=== PATIENT | male | born 1955 | race Caucasian/White ===

== ENCOUNTER 2016-09-27 18:49 | Inpatient (IN) ==
--- NOTE | 2016-09-27 19:11 | Emergency Department Note ---
Addendum entered and electronically signed by Luis Espinoza DO 23:27: Addendum serves to expand upon previously documented physical exam. Cardiovascular: Bilateral posterior tibial pulses 2/4. Musculoskeletal: Lower extremity strength 5/5 equal bilaterally. Skin: Left lower extremity exhibits blanchable erythema from the mid tibia to the middle foot, tender to palpation; development representative of cellulitis. Original Note: Disposition Clinical Impression: Congestive heart failure Qualifiers: Congestive heart failure type: unspecified congestive heart failure type Congestive heart failure chronicity: acute Qualified Code(s): I50.9 - Heart failure, unspecified Cellulitis Qualifiers: Site of cellulitis: extremity Site of cellulitis of extremity: lower extremity Laterality: left Qualified Code(s): L03.116 - Cellulitis of left lower limb Disposition: Admitted As Inpatient Condition: Fair [facility]Primary Care Provider[facility] - Forms: ED Satisfaction Letter Time of Disposition: 22:17 SOB HPI - General Chief Complaint: ED Shortness of Breath/Dyspnea Stated Complaint: SOB Time Seen by Provider: 09/27/16 19:02 Source: patient Mode of arrival: ambulatory Limitations: no limitations Nursing Notes Reviewed: Yes Vital Signs Reviewed: Yes - History of Present Illness Mr. Barnes, 7-year-old male, presents via EMS from the [place] with chief complaint of dyspnea. Onset yesterday morning and consistent. Described as dyspnea at rest, worsened with light exertion. Associate with increased bilateral lower extremity swelling PMH: A. fib rate limited on Cardizem; patient refuses anticoagulation. Hypertension managed with metoprolol. Patient has no history of CHF, COPD, ACS. He uses no oxygen at home. Habits: No smoke, EtOH, or illicit. ROS: Positive: Dyspnea at rest, increase like swelling Negative: Fever, chills, nausea, vomiting, chest pains, palpitations, cough, dizziness, confusion - Related Data Home Medications Medication Instructions Recorded Confirmed Aspirin 650 mg PO DAILY 09/27/16 09/27/16 Bisacodyl [Dulcolax] 5 mg PO HS 09/27/16 09/27/16 Colchicine [Colcrys] 0.6 mg PO DAILY 09/27/16 09/27/16 Diltiazem HCl [Diltiazem 24Hr Cd] 180 mg PO BID 09/27/16 09/27/16 Furosemide [Lasix] 40 mg PO DAILY 09/27/16 09/27/16 Hydrocortisone/Pramoxine 10 gm RC TID 09/27/16 09/27/16 [Proctofoam-Hc 1%-1% Foam] Levothyroxine [Synthroid] 50 mcg PO 0609/27/16 09/27/16 Metoprolol Succinate 100 mg PO BID 09/27/16 09/27/16 OxyCODONE Immed Rel [Roxicodone 15 15 mg PO Q4H PRN 09/27/16 09/27/16 MG] Psyllium Husk (with Sugar) [Konsyl 3.4 gm PO BID 09/27/16 09/27/16 Psyllium Fiber Packet] Allergies Allergy/AdvReac Type Severity Reaction Status Date / Time vancomycin Allergy See Verified 09/27/16 19:41 Comments All systems ED: reviewed and negative except as stated. Past Medical History - Past Medical History Medical history: Reports: atrial fibrillation, diabetes, hypertension Psychiatric history: Reports: no psych history - Social History Smoking Status: Never smoker Smokeless Tobacco Status: No Alcohol use: Reports: occasionally Drug use: Reports: none Physical Exam Vital Signs Reviewed General: Patient is alert, oriented, and in no acute respiratory distress. HEENT: No facial asymmetry. Head is normocephalic and atraumatic. PERRLA. Trachea midline. Cardiovascular: Heart regular rate and rhythm without clicks, rubs, gallops, or murmurs. No JVD. PMI nondisplaced. Bilateral lower extremity 3+ pitting edema with weeping on left leg. Respiratory: Symmetric chest rise with poor respiratory effort. Bilateral breath sounds are clear without wheezing, crackles, or rhonchi. Abdomen: Morbidly obese. Bowel sounds present normoactive x-4 quadrants. Abdomen is soft, nondistended, and nontender. Psych: Patient's affect is appropriate for situation. - General General appearance: alert Course Course Narrative: [facility] showed: white blood cell 3.7 Hemoglobin 11.2 Hematocrit 36.1 Troponin less than 0.015 BNP 3587 Patient's exam is clinically concerning for acute exacerbation of congestive heart failure. Initially, he has what appears to be left lower extremity cellulitis which patient notes his worsening within the nursing department. Will culture blood and provide empiric antibiotics. Patient left lower extremity also clinically concerning for DVT; will ultrasound. Anticipate admission to the hospital for continued IV antibiotics as well as acute exacerbation of congestive heart failure. Chest x-ray concerning for pulmonary effusion. Labwork concerning for elevated BNP, hyperthyroidism, anemia. No previous lab work. DVT study negative. Spoke with the admitting hospitalist, Dr. Bhatia, who agrees to accept the patient. He has no questions at this time. Vital Signs Temperature 97.7 F 09/27/16 18:51 Pulse Rate 95 09/27/16 18:51 Respiratory Rate 18 09/27/16 18:51 Blood Pressure 146/94 09/27/16 18:51 O2 Sat by Pulse Oximetry 99 09/27/16 18:51 Temperature 97.7 F 09/27/16 18:51 Pulse Rate 88 09/27/16 21:29 Respiratory Rate 16 09/27/16 21:29 Blood Pressure 125/82 09/27/16 21:29 O2 Sat by Pulse Oximetry 98 09/27/16 21:29 Oxygen Delivery Oxygen Delivery Nasal Cannula Shortness of Breath/Dyspnea - Differential Diagnosis Likely: congestive heart failure, pulmonary embolism, arrhythmia - Medical Records Medical records reviewed: Yes I reviewed the patient's medical records. - Lab Data Lab results reviewed: Yes I reviewed the patient's lab results. Result diagrams: 09/27/16 19:18 09/27/16 19:18 Lab Results 09/27/16 09/27/16 09/27/16 Range/Units 19:18 19:18 19:18 WBC 4.0 L (4.3-11.1) K/mcL RBC 4.15 L (4.19-5.50) M/mcL Hgb 11.3 L (12.9-16.9) g/dL Hct 35.2 L (37.5-50.1) % MCV 84.8 (83.0-100.0) fL MCH 27.2 L (28.0-33.3) pg MCHC 32.1 (31.6-35.5) g/dL RDW 17.6 H (11.5-14.5) % Plt Count 121 L (140-400) K/mcL MPV 9.8 (9.4-12.4) fL Immature Gran % 0.8 (0-4) % Seg Neutrophils % 55.5 % Lymphocytes % 30.6 % Monocytes % 8.8 % Eosinophils % 3.8 % Basophils % 0.5 % Neutrophils # 2.2 (1.6-8.9) K/mcL Lymphocytes # 1.2 (0.6-4.6) K/mcL Monocytes # 0.4 (0.0-1.3) K/mcL Eosinophils # 0.2 (0.0-0.6) K/mcL Basophils # 0.0 (0.0-0.2) K/mcL PT 14.2 H (9.4-12.1) Seconds INR 1.3 APTT 30.8 (26.0-36.0) Seconds Sodium 141 (136-145) mEq/L Potassium 3.6 (3.5-4.5) mEq/L Chloride 105 (98-109) mEq/L Carbon Dioxide 27 (19-29) mEq/L BUN 16 (8-26) mg/dL Creatinine 1.20 (0.72-1.25) mg/dL Est GFR ( Amer) > 60 (> 60) Est GFR (Non-Af Amer) > 60 (> 60) BUN/Creatinine Ratio 13 (6-26) Glucose 129 H (70-99) mg/dL Calculated Osmolality 295 (280-300) Calcium 8.8 (8.6-10.8) mg/dL Troponin I (0-0.03) ng/mL B-Natriuretic Peptide (0-100) pg/mL TSH 6.168 H (0.350-4.840) mcIU/mL 09/27/16 09/27/16 Range/Units 19:18 19:18 WBC (4.3-11.1) K/mcL RBC (4.19-5.50) M/mcL Hgb (12.9-16.9) g/dL Hct (37.5-50.1) % MCV (83.0-100.0) fL MCH (28.0-33.3) pg MCHC (31.6-35.5) g/dL RDW (11.5-14.5) % Plt Count (140-400) K/mcL MPV (9.4-12.4) fL Immature Gran % (0-4) % Seg Neutrophils % % Lymphocytes % % Monocytes % % Eosinophils % % Basophils % % Neutrophils # (1.6-8.9) K/mcL Lymphocytes # (0.6-4.6) K/mcL Monocytes # (0.0-1.3) K/mcL Eosinophils # (0.0-0.6) K/mcL Basophils # (0.0-0.2) K/mcL PT (9.4-12.1) Seconds INR APTT (26.0-36.0) Seconds Sodium (136-145) mEq/L Potassium (3.5-4.5) mEq/L Chloride (98-109) mEq/L Carbon Dioxide (19-29) mEq/L BUN (8-26) mg/dL Creatinine (0.72-1.25) mg/dL Est GFR ( Amer) (> 60) Est GFR (Non-Af Amer) (> 60) BUN/Creatinine Ratio (6-26) Glucose (70-99) mg/dL Calculated Osmolality (280-300) Calcium (8.6-10.8) mg/dL Troponin I 0.00 (0-0.03) ng/mL B-Natriuretic Peptide 562 H (0-100) pg/mL TSH (0.350-4.840) mcIU/mL - Radiology Data Radiology results reviewed: Yes I reviewed the patient's radiology results. Chest X-Ray 09/27/16 19:02 IMPRESSION: Enlarged cardiac silhouette and pulmonary vascular congestion. D/ / Stevie Paula MD / Stevie Paula MD Interpreting Provider: Stevie Paula MD - EKG Data EKG attestation: Yes I reviewed and interpreted this EKG. EKG results narrative: 2. Patient's EKG which shows atrial fibrillation rate controlled, at a rate of 89 bpm with poor R-wave progression across the anterior leads and evidence of lateral T-wave inversion in V4 V5 and V6 1 and aVL, this is compared to an old EKG and these findings are not new this was compared to 02/26/2015. Attestation Statement - Attestation Attestation: I personally interviewed and examined this patient and my medical decision- making was reviewed with the ED Resident Physician, Dr. Espinoza. I agree with the documented findings, disposition and treatment plan as described except to the extent set forth below. Patient is a pleasant 61-year-old white male who was sent here from the [facility] for evaluation of shortness of breath, with increased lower extremity edema. Patient has a history of chronic A. fib and is on Cardizem at home, states he refuses to take anticoagulants that he is on no blood thinners at this time. Patient tells me that he was told by his doctors at the [place] that if he ever develops shortness of breath or swelling in his legs that he should return to the emergency department as he does have a history of congestive heart failure. Patient was feeling a little short of breath noticed edema and so he went in for evaluation and then was sent to us for further evaluation. Patient also has what looks like a superficial abrasion noted to the left lower medial leg with surrounding erythema increased warmth to touch and soft tissue swelling. In the last 24 hours this has progressed to encompass his entire foot and ankle and lower leg. He has no proximal streaking from the area, denies any fevers or chills, no nausea vomiting. Patient had no prior episodes or problems with cellulitis or hospitalizations as a result of cellulitis. Patient is diabetic, type II and states his sugars have been well-controlled at home. I agree with patient's physical exam is documented. On evaluation here patient is in his chronic A. fib rhythm but rate controlled at this time on his medications. I do not feel that this is causing him to be short of breath. Patient had no infectious like symptoms no fevers or chills no production of cough no sore throat. Patient's lungs are clear on auscultation. Patient's chest x-ray does show some mild congestion, mild CHF, so patient was given aspirin nitroglycerin and a dose of Lasix here in the ED. I am also worried about the patient's left lower leg and we are obtaining blood cultures, starting him on antibiotics for the cellulitis and obtaining a DVT study of the left lower extremity to rule out a blood clot. Patient has no prior history of blood clots. Patient is hemodynamically stable at this time resting comfortably in no distress and we are awaiting ultrasound for final disposition. My plan is to admit the patient to the hospital for treatment of his CHF as well as his left lower extremity cellulitis.
[2016-09-27 19:25] LABS: Basophils % 0.5 %; Eosinophils # 0.2 K/mcL (0.0-0.6); Eosinophils % 3.8 %; Hematocrit 35.2 % (37.5-50.1); Hemoglobin 11.3 g/dL (12.9-16.9); Immature Granulocytes % 0.8 % (0-4); Lymphocytes # 1.2 K/mcL (0.6-4.6); Lymphocytes % 30.6 %; Mean Corpuscular HGB Conc 32.1 g/dL (31.6-35.5); Mean Corpuscular Hemoglobin 27.2 pg (28.0-33.3); Mean Corpuscular Volume 84.8 fL (83.0-100.0); Mean Platelet Volume 9.8 fL (9.4-12.4); Monocytes # 0.4 K/mcL (0.0-1.3); Monocytes % 8.8 %; Neutrophils # 2.2 K/mcL (1.6-8.9); Platelet Count 121 K/mcL (140-400); Red Blood Count 4.15 M/mcL (4.19-5.50); Red Cell Distribution Width 17.6 % (11.5-14.5); Segmented Neutrophils % 55.5 %
[2016-09-27] MEDS ORDERED: Aspirin 81 MG TAB.CHEW PO ONE (19:25)
[2016-09-27 19:32] LABS: INR 1.3; Prothrombin Time 14.2 Seconds (9.4-12.1)
[2016-09-27 19:34] LABS: Activated Partial Thrombo Time 30.8 Seconds (26.0-36.0)
[2016-09-27 19:39] LABS: BUN/Creatinine Ratio 13 (6-26); Blood Urea Nitrogen 16 mg/dL (8-26); Calcium 8.8 mg/dL (8.6-10.8); Carbon Dioxide 27 mEq/L (19-29); Chloride 105 mEq/L (98-109); Glucose 129 mg/dL (70-99); Osmolality,Calculated 295 (280-300); Potassium 3.6 mEq/L (3.5-4.5); Sodium 141 mEq/L (136-145); eGFR For African Americans > 60 (> 60); eGFR For Non-African Americans > 60 (> 60)
[2016-09-27 20:12] LABS: Thyroid Stimulating Hormone 6.168 mcIU/mL (0.350-4.840)
[2016-09-27] MEDS ORDERED: Nitroglycerin 1 INCH/GM PACKET TP ONE (20:42)
[2016-09-27] MEDS ORDERED: Furosemide 40 MG/4 ML VIAL IVP ONE (20:42)
[2016-09-27] MEDS ORDERED: Clindamycin 600 MG/50 ML 600 MG/50 ML IV.SOLN IVPB STA (20:45)
[2016-09-28] MEDS ORDERED: Naloxone 0.4 MG/ML INJ IVP PRN ×2 (00:55→00:57)
[2016-09-28] MEDS ORDERED: Acetaminophen 325 MG TABLET PO PRN (00:57)
[2016-09-28] MEDS ORDERED: Vancomycin 2,000 MG in D5% in Water 250 ML IVPB SCH (01:00)
[2016-09-28] MEDS: *HR* OxyCODONE Immed Rel 15 MG TABLET PO PRN ×5 (01:49→20:37)
[2016-09-28] MEDS ORDERED: Diltiazem CD (24hr) 180 MG CAPSULE PO SCH ×3 (02:30→09:00)
[2016-09-28] MEDS ORDERED: Metoprolol XL (24 HR) Succ 50 MG TAB.ER.24H PO SCH ×2 (02:30→09:00)
[2016-09-28 03:22] LABS: Basophils % 0.7 %; Eosinophils # 0.2 K/mcL (0.0-0.6); Eosinophils % 3.7 %; Hematocrit 34.8 % (37.5-50.1); Hemoglobin 11.3 g/dL (12.9-16.9); Immature Granulocytes % 0.5 % (0-4); Lymphocytes # 1.1 K/mcL (0.6-4.6); Mean Corpuscular HGB Conc 32.5 g/dL (31.6-35.5); Mean Corpuscular Hemoglobin 27.7 pg (28.0-33.3); Mean Corpuscular Volume 85.3 fL (83.0-100.0); Mean Platelet Volume 10.6 fL (9.4-12.4); Monocytes # 0.4 K/mcL (0.0-1.3); Monocytes % 10.4 %; Neutrophils # 2.3 K/mcL (1.6-8.9); Platelet Count 134 K/mcL (140-400); Red Blood Count 4.08 M/mcL (4.19-5.50); Red Cell Distribution Width 17.7 % (11.5-14.5); Segmented Neutrophils % 57.7 %
[2016-09-28 03:23] LABS: BUN/Creatinine Ratio 12 (6-26); Blood Urea Nitrogen 15 mg/dL (8-26); Calcium 8.7 mg/dL (8.6-10.8); Carbon Dioxide 27 mEq/L (19-29); Chloride 103 mEq/L (98-109); Glucose 169 mg/dL (70-99); Magnesium 1.7 mg/dL (1.6-2.6); Osmolality,Calculated 293 (280-300); Potassium 3.4 mEq/L (3.5-4.5); Sodium 139 mEq/L (136-145); eGFR For African Americans > 60 (> 60); eGFR For Non-African Americans 57 (> 60)
--- NOTE | 2016-09-28 05:38 | Internal Med History&Physical ---
Date of Encounter: 09/28/16 Time of Encounter: 02:00 Assessment and Plan (1) CHF exacerbation Current visit: Yes Status: Acute patient has increased shortness of breath and leg swelling. Elevated BNP and pulmonary vascular congestion on x-ray. - Consider CHF exacerbation. - Patient has no echo result in our system. We will order echocardiogram. - Continue Lasix IV. Strict in and out. Qualifiers: Congestive heart failure type: unspecified congestive heart failure type Qualified Code(s): I50.9 - Heart failure, unspecified (2) A-fib Current visit: Yes Status: Acute Heart rate is well controlled. 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 patient had history of ablation procedure. Qualifiers: Atrial fibrillation type: chronic Qualified Code(s): I48.2 - Chronic atrial fibrillation (3) Sleep apnea Current visit: Yes Status: Acute Patient uses CPAP at home. We will continue CPAP. Qualifiers: Sleep apnea type: obstructive Qualified Code(s): G47.33 - Obstructive sleep apnea (adult) (pediatric) (4) Hypothyroidism Current visit: Yes Status: Acute Continue home medication Qualifiers: Hypothyroidism type: unspecified Qualified Code(s): E03.9 - Hypothyroidism , unspecified (5) Chronic hip pain Current visit: Yes Status: Acute CHRONIC. On pain medication. Qualifiers: Laterality: right Qualified Code(s): M25.551 - Pain in right hip; G89.29 - Other chronic pain (6) Cellulitis Current visit: Yes Status: Acute Cellulitis. Patient is allergic to vancomycin. Place the patient on doxycycline IV. Blood cultures sent. Qualifiers: Site of cellulitis: extremity Site of cellulitis of extremity: lower extremity Laterality: left Qualified Code(s): L03.116 - Cellulitis of left lower limb Internal Medicine - H&P: HPI Chief complaint: Shortness of breath and leg swelling Admitted From: Home Plans for Post Hospital Care: Home History of present illness: Mr. Barnes is a 61 year old male transferred from [place] for increased shortness of breath and leg swelling. Patient said he had a similar problem 2 months ago. This time he had a swelling again and increase the shortness of breath for 2 days. He needed 5-6 pillows during sleep and sometimes waking up by shortness of breath during his sleep. In emergency room, chest x-ray shows pulmonary vascular congestion. BNP is elevated. Patient was admitted about CHF exacerbation. I discussed with patient the CODE STATUS. He does not want resuscitation but do accept intubation. Please CODE STATUS as DNR CCA. Past Med Surg Social Fam HX - Past Medical History Medical history: atrial fibrillation, diabetes, hypertension Psychiatric history: no psych history - Social History Smoking Status: Never smoker Smokeless Tobacco Status: No Alcohol use: occasionally Drug use: none - Family History Father Living Status: Hx Family Cancer: Yes (lung) Mother Living Status: Internal Medicine - H&P: Meds Aspirin 650 mg PO DAILY 09/27/16 [History] Bisacodyl [Dulcolax] 5 mg PO HS 09/27/16 [History] Colchicine [Colcrys] 0.6 mg PO DAILY 09/27/16 [History] Diltiazem HCl [Diltiazem 24Hr Cd] 180 mg PO BID 09/27/16 [History] Furosemide [Lasix] 40 mg PO DAILY 09/27/16 [History] Hydrocortisone/Pramoxine [Proctofoam-Hc 1%-1% Foam] 10 gm RC TID 09/27/16 [ History] Levothyroxine [Synthroid] 50 mcg PO 0630 09/27/16 [History] Metoprolol Succinate 100 mg PO BID 09/27/16 [History] OxyCODONE Immed Rel [Roxicodone 15 MG] 15 mg PO Q4H PRN 09/27/16 [History] Psyllium Husk (with Sugar) [Konsyl Psyllium Fiber Packet] 3.4 gm PO BID [History] Allergies vancomycin Allergy (Verified 09/27/16 19:41) See Comments pt states that when he takes vanc he passes out and has twitching movements All Systems PM: A 10-system review of systems was performed and is negative for pertinent findings except as documented above in the HPI. - Constitutional Vitals: Temp Pulse Resp BP Pulse Ox 97.9 F 81 16 146/93 97 09/28/16 00:20 09/28/16 00:20 09/28/16 00:20 09/28/16 00:20 09/28/16 00:20 General appearance: Present: A&O X 3, no acute distress, answers questions appropriately - Head Head exam: Present: atraumatic, normocephalic - Eye Eye exam: Present: PERRL, conjuntiva pink, sclera anicteric Pupils: Present: PERRL - Neck Neck exam general surgery: Present: supple, trachea midline. Absent: lymphadenopathy - Respiratory Respiratory exam: Present: CTAB. Absent: accessory muscle use, rales, rhonchi, wheezes - Cardiovascular Cardiovascular exam: Present: RRR, +S1, +S2. Absent: diastolic murmur, gallop, rubs, systolic murmur - GI/Abdominal GI/Abdominal exam: Present: normal bowel sounds, soft, no peritoneal signs. Absent: distended, tenderness - Extremities Exam Extremities exam: Present: pedal edema (Bilaterally up to knee), warm, radial pulses palpable and symetrical. Absent: calf tenderness, cyanotic Additional comments: Pt also has left lower leg skin redness and warmth, consistent with cellulitis. - Neurological Exam Neurological exam: Present: CN II-XII intact, oriented X3, no focal deficits. Absent: pronater drift, facial droop, speech deficit - Skin Skin exam: Present: dry, intact Internal Med - H&P Results - Labs CBC & Chem 7: 09/28/16 03:04 09/28/16 03:04 Labs: Short CBC 09/28/16 Range/Units 03:04 WBC 4.0 L (4.3-11.1) K/mcL Hgb 11.3 L (12.9-16.9) g/dL Hct 34.8 L (37.5-50.1) % Plt Count 134 L (140-400) K/mcL Neutrophils # 2.3 (1.6-8.9) K/mcL BMP 09/28/16 03:04 Sodium 139 Potassium 3.4 L Chloride 103 Carbon Dioxide 27 BUN 15 Creatinine 1.28 H Glucose 169 H Calcium 8.7
[2016-09-28] MEDS: *HR* Enoxaparin 40 MG/0.4 ML SYRINGE SQ SCH (05:42)
[2016-09-28] MEDS ORDERED: Doxycycline 100 MG in 0.9 % Sodium Chloride Mini Bag 100 ML IVPB SCH (06:00)
--- NOTE | 2016-09-28 07:24 | Venous Imaging Report ---
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 Normal contralateral common femoral vein. Recommendations: Test completed on 09/27/2016 at 10:09:00 pm. Critical findings reported to MARION Messina in person at 10:10:00 pm on 09/27/2016 by Frieda Larson. Findings Prior Study: No prior study available for comparison. Lower Extremity Venous Duplex Side Vein Compress Spontaneous Flow Augment Diameter (cm) Depth (cm) Left Distal Iliac Normal Yes Phasic Yes Left Common Femoral Normal Yes Phasic Yes Left Superficial Femoral Normal Yes Phasic Yes Left Popliteal Normal Yes Phasic Yes Left Posterior Tibial Normal Yes Phasic Yes Left Peroneal Normal Yes Phasic Yes Left Saphenofemoral [place] Normal Yes Phasic Yes Left Great Saphenous Normal Yes Phasic Yes Left Lesser Saphenous Normal Yes Phasic Yes Right Common Femoral Normal Yes Phasic Yes Updated by Toño Gorman MD on 09/28/2016 7:16:59 AM electronically signed on 09/28/2016 7:17:52 AM with status of Final
[2016-09-28] MEDS: Furosemide 40 MG/4 ML VIAL IVP SCH (08:55)
--- NOTE | 2016-09-28 10:28 | Event Note ---
<Eliud Wells G - Last Filed: 09/28/16 14:09> Date of Encounter: 09/28/16 Time of Encounter: 10:20 Patient seen and examined at bedside. Patient reports palpitations at this time. Denies chest pain/dyspnea. Patient was sitting up in bed and got out of bed to use the restroom while I was present, no distress noted. VS: HR 125, BP 140/100, SpO2 97% RA, T 98.2 Eye: swelling and erythema surrounding L eye. No visoin changes, EOMI without pain on EOM Heart: Irregularly Irregular. No m/r/g Lungs: Diminshed throughout. No rales/rhonchi/wheezes noted. Skin: Multiple healing excoriations diffusely spread throughout. No pustular drainage noted. Mild erythema to LLE. A/P: Acute on chronic diastolic heart failure: Possibly due to a fib with RVR. Echo shows normal EF with indeterminate diastolic function. Continue beta curtis, diuresis. A fib with RVR: Rate elevated at this time, likely due to patient not receiving medication in past 36 hours. Patient otherwise stable. Will restart home medications. Continue to monitor rate. Patient is not on AC per PCP, patient only takes ASA 650mg daily. Cellulitis of eye: Erythema and swelling around eye noted. No vision changes or pain with EOM. Will obtain stat CY of orbit to rule out orbital cellulitis. Start ancef and doxycycline Lower extremity erythema: Concern for cellutlitis given multiple areas od excoriation that could be an area of entry for infection. Start ancef and doxycycline as patient has stated allergy to vancomycin <Lucien Rodriguez - Last Filed: 09/28/16 18:57> Date of Encounter: 09/28/16 Pt admitted earlier today for acute exac CHF. Has a fib with RVR. PO meds given. Comfortable at this time. Has cellulitis around L eye (preseptal) Further plan as ordered.
[2016-09-28] MEDS: Diltiazem CD (24hr) 180 MG CAPSULE PO SCH ×2 (10:37→20:37)
[2016-09-28] MEDS: Metoprolol XL (24 HR) Succ 50 MG TAB.ER.24H PO SCH ×2 (10:37→20:37)
[2016-09-28] MEDS: Aspirin 325 MG TABLET PO SCH (11:36)
[2016-09-28] MEDS: Colchicine 0.6 MG TABLET PO SCH (11:37)
[2016-09-28] MEDS: Pramoxine 15 GM FOAM Package RC SCH ×3 (16:12→20:40)
[2016-09-28] MEDS: ceFAZolin 1,000 MG in D5% in Water (Mini-Bag+) 100 ML IVPB SCH (16:22)
[2016-09-28] MEDS: Doxycycline 100 MG in 0.9 % Sodium Chloride Mini Bag 100 ML IVPB SCH (17:46)
--- NOTE | 2016-09-28 23:56 | Electrocardiograph Report ---
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
[2016-09-29] MEDS: ceFAZolin 1,000 MG in D5% in Water (Mini-Bag+) 100 ML IVPB SCH ×4 (00:10→23:02)
[2016-09-29] MEDS: *HR* OxyCODONE Immed Rel 15 MG TABLET PO PRN ×6 (00:50→23:02)
[2016-09-29 04:34] LABS: Basophils % 0.7 %; Eosinophils # 0.2 K/mcL (0.0-0.6); Eosinophils % 3.9 %; Hematocrit 33.5 % (37.5-50.1); Hemoglobin 10.5 g/dL (12.9-16.9); Immature Granulocytes % 0.7 % (0-4); Lymphocytes # 1.3 K/mcL (0.6-4.6); Lymphocytes % 29.7 %; Mean Corpuscular HGB Conc 31.3 g/dL (31.6-35.5); Mean Corpuscular Hemoglobin 27.1 pg (28.0-33.3); Mean Corpuscular Volume 86.6 fL (83.0-100.0); Mean Platelet Volume 10.8 fL (9.4-12.4); Monocytes # 0.5 K/mcL (0.0-1.3); Monocytes % 11.1 %; Neutrophils # 2.3 K/mcL (1.6-8.9); Platelet Count 132 K/mcL (140-400); Red Blood Count 3.87 M/mcL (4.19-5.50); Red Cell Distribution Width 17.7 % (11.5-14.5); Segmented Neutrophils % 53.9 %
[2016-09-29 04:55] LABS: BUN/Creatinine Ratio 11 (6-26); Blood Urea Nitrogen 14 mg/dL (8-26); Calcium 8.8 mg/dL (8.6-10.8); Carbon Dioxide 30 mEq/L (19-29); Chloride 105 mEq/L (98-109); Glucose 119 mg/dL (70-99); Osmolality,Calculated 294 (280-300); Potassium 3.4 mEq/L (3.5-4.5); Sodium 141 mEq/L (136-145); eGFR For African Americans > 60 (> 60); eGFR For Non-African Americans > 60 (> 60)
[2016-09-29] MEDS: Doxycycline 100 MG in 0.9 % Sodium Chloride Mini Bag 100 ML IVPB SCH ×2 (05:47→17:36)
[2016-09-29] MEDS: *HR* Enoxaparin 40 MG/0.4 ML SYRINGE SQ SCH (05:47)
--- NOTE | 2016-09-29 09:19 | Internal Med Progress Note ---
<PriscillaEliud - Last Filed: 09/29/16 09:17> Date of Encounter: 09/29/16 Time of Encounter: 09:17 - Assessment and plan (1) Congestive heart failure Current Visit: Yes Status: Acute Assessment and plan: Echo yesterday revealed EF of 60-65% with indeterminant diastolic dysfunction. Clinically the patient presented with fluid overload and signs of acute exacerbation of chronic diastolic heart failure. Patient reports good diuresis although there is no urine output documented in system patient's lower extremity edema appears much improved. Continue with IV diuresis. Qualifiers: Congestive heart failure type: diastolic Congestive heart failure chronicity: acute on chronic Qualified Code(s): I50.33 - Acute on chronic diastolic (congestive) heart failure (2) Cellulitis Current Visit: Yes Status: Acute Assessment and plan: Patient has left lower extremity cellulitis in addition to a preseptal cellulitis around the left eye. CT scan of the orbit performed yesterday showed no evidence of orbital cellulitis. Appears improving. Continue with cefazolin and doxycycline IV as the patient is allergic to vancomycin. Qualifiers: Site of cellulitis: periorbital Laterality: left Qualified Code(s): L03.213 - Periorbital cellulitis (3) A-fib Current Visit: Yes Status: Acute Assessment and plan: Rate control at this time. Patient is only on aspirin 650 mg daily for anticoagulation per his primary care physician. Continue calcium channel curtis and beta curtis. Qualifiers: Atrial fibrillation type: chronic Qualified Code(s): I48.2 - Chronic atrial fibrillation (4) Hypothyroidism Current Visit: Yes Status: Acute Assessment and plan: Patient's TSH was elevated on presentation. Patient does take 50 g of Synthroid daily, will check full thyroid panel before adjusting thyroid medications. Asymptomatic at this time. Qualifiers: Hypothyroidism type: unspecified Qualified Code(s): E03.9 - Hypothyroidism , unspecified - Subjective Interval history: Patient seen and examined at bedside. Patient states that he feels much better today. He reports his lower extremity swelling and left lower extremity redness is improved, he states the swelling around his eye feels better. He denies fever, chills, shortness of breath, chest pain. - Constitutional Vitals: Temp Pulse Resp BP Pulse Ox 98.1 F 71 19 140/95 97 09/29/16 07:00 09/29/16 07:00 09/29/16 07:00 09/29/16 07:00 09/29/16 07:00 General appearance: Present: A&O X 3, no acute distress, answers questions appropriately - Eye Eye exam: Present: EOMI (No pain with extraocular movements), periorbital swelling (improved from yesterday) - Respiratory Respiratory exam: Present: CTAB. Absent: rales, rhonchi, wheezes - Cardiovascular Cardiovascular exam: Present: irregular rhythm. Absent: gallop, rubs, systolic murmur, tachycardia - GI/Abdominal GI/Abdominal exam: Present: normal bowel sounds, soft. Absent: distended, tenderness - Extremities Exam Extremities exam: Present: pedal edema (1+, improved from yesterday), warm. Absent: tenderness Additional comments: Erythema to left lower extremity is present but improved from yesterday. - Neurological Exam Neurological exam: Present: alert, CN II-XII intact, oriented X3, no focal deficits Internal Medicine: Result - Labs CBC & Chem 7: 09/29/16 03:58 09/29/16 03:58 Labs: Short CBC 09/29/16 Range/Units 03:58 WBC 4.3 (4.3-11.1) K/mcL Hgb 10.5 L (12.9-16.9) g/dL Hct 33.5 L (37.5-50.1) % Plt Count 132 L (140-400) K/mcL Neutrophils # 2.3 (1.6-8.9) K/mcL BMP 09/29/16 03:58 Sodium 141 Potassium 3.4 L Chloride 105 Carbon Dioxide 30 H BUN 14 Creatinine 1.22 Glucose 119 H Calcium 8.8 - ABG Interpretation ABG results: PT/INR, D-dimer PT 14.2 Seconds (9.4-12.1) H 09/27/16 19:18 - Impressions Impressions Orbit CT 09/28/16 14:02 IMPRESSION: Mild left periorbital soft tissue swelling and mild soft tissue swelling of the medial eyelid. Findings are consistent with left preseptal cellulitis. No evidence of orbital cellulitis. D/ / 09/28/2016 16:07:11 Ailyn Edward MD / earnold Interpreting Provider: Ailyn dEward MD Consult Discharge Plan - Plan [facility] Provider[facility] - <Lucien Rodriguez A - Last Filed: 09/29/16 17:31> Date of Encounter: 09/29/16 - Assessment and plan (1) Congestive heart failure Current Visit: Yes Status: Acute Qualifiers: Congestive heart failure type: diastolic Congestive heart failure chronicity: acute on chronic Qualified Code(s): I50.33 - Acute on chronic diastolic (congestive) heart failure (2) A-fib Current Visit: Yes Status: Acute Qualifiers: Atrial fibrillation type: chronic Qualified Code(s): I48.2 - Chronic atrial fibrillation (3) Cellulitis Current Visit: Yes Status: Acute Qualifiers: Site of cellulitis: periorbital Laterality: left Qualified Code(s): L03.213 - Periorbital cellulitis (4) Nodular rash Current Visit: Yes Status: Chronic Assessment and plan: Biopsy today (5) Hypothyroidism Current Visit: Yes Status: Acute Qualifiers: Hypothyroidism type: unspecified Qualified Code(s): E03.9 - Hypothyroidism , unspecified (6) Sleep apnea Current Visit: Yes Status: Acute Qualifiers: Sleep apnea type: obstructive Qualified Code(s): G47.33 - Obstructive sleep apnea (adult) (pediatric) (7) Morbid obesity with BMI of 50.0-59.9, adult Current Visit: Yes Status: Chronic - Constitutional Vitals: Temp Pulse Resp BP Pulse Ox 98.1 F 92 17 163/95 96 09/29/16 07:00 09/29/16 15:00 09/29/16 15:00 09/29/16 15:00 09/29/16 15:00 Internal Medicine: Result - Labs CBC & Chem 7: 09/29/16 03:58 09/29/16 03:58 Labs: Short CBC 09/29/16 Range/Units 03:58 WBC 4.3 (4.3-11.1) K/mcL Hgb 10.5 L (12.9-16.9) g/dL Hct 33.5 L (37.5-50.1) % Plt Count 132 L (140-400) K/mcL Neutrophils # 2.3 (1.6-8.9) K/mcL BMP 09/29/16 03:58 Sodium 141 Potassium 3.4 L Chloride 105 Carbon Dioxide 30 H BUN 14 Creatinine 1.22 Glucose 119 H Calcium 8.8 - ABG Interpretation ABG results: PT/INR, D-dimer PT 14.2 Seconds (9.4-12.1) H 09/27/16 19:18 - Impressions Impressions Orbit CT 09/28/16 14:02 IMPRESSION: Mild left periorbital soft tissue swelling and mild soft tissue swelling of the medial eyelid. Findings are consistent with left preseptal cellulitis. No evidence of orbital cellulitis. D/ / 09/28/2016 16:07:11 Ailyn Edward MD / earnold Interpreting Provider: Ailyn Edward MD - Attending Attestation I examined this patient and my medical decision-making was reviewed with the Resident Physician on 09/29/16. I agree with the documented findings, disposition and treatment plan as described except to the extent set forth below. Mr. Barnes is currently admitted for acute exac CHF. He is moderate to high risk due to potential for worsening respiratory symptoms. Mr. Barnes is feeling somewhat better today. His edema is improving and he is less dyspneic. He is not back to baseline. No fever or chills. No GI symptoms. Has new areas of rash on L arm developing. Exam Alert. Comfortable Heart reg No wheeze Edema improving. Nodular area on L forearm that is new. I/P 1. Acute CHF 2. Nodular rash - biopsy today Further diagnoses and plan as above.
[2016-09-29] MEDS: Furosemide 40 MG/4 ML VIAL IVP SCH ×2 (09:55→16:52)
[2016-09-29] MEDS: Colchicine 0.6 MG TABLET PO SCH (09:55)
[2016-09-29] MEDS: Diltiazem CD (24hr) 180 MG CAPSULE PO SCH ×2 (09:55→20:19)
[2016-09-29] MEDS: Metoprolol XL (24 HR) Succ 50 MG TAB.ER.24H PO SCH ×2 (09:55→20:19)
[2016-09-29] MEDS: Aspirin 325 MG TABLET PO SCH (09:55)
[2016-09-29] MEDS: Pramoxine 15 GM FOAM Package RC SCH ×3 (09:57→20:20)
[2016-09-29] MEDS ORDERED: Lidocaine -MPF 1% 5 ML AMPUL SQ ONE (15:30)
--- NOTE | 2016-09-29 16:17 | Procedure Note ---
<Eliud Wells - Last Filed: 09/29/16 16:18> Date of procedure: 09/29/16 Pre-op diagnosis: Skin lesion Post-op diagnosis: same Procedure: Punch biopsy: Written consent was obtained from the patient. The lesion was identified and cleaned with ChloraPrep. A 5 mm punch biopsy was obtained. 3 sutures using 4- 0 Ethilon were placed for hemostasis. Patient tolerated procedure well and there are no immediate complications. Anesthesia: local Surgeon: Eliud Wells Estimated blood loss (cc): 3 Pathology: other (specimen sent to lab) Condition: stable Disposition: floor <Lucien Rodriguez - Last Filed: 09/29/16 17:33> - Attending Attestation I examined this patient and my medical decision-making was reviewed with the Resident Physician on 09/29/16. I agree with the documented findings, disposition and treatment plan as described except to the extent set forth below. I was present for the entire procedure and it was longer than 5 minutes. 3 simple interrupted sutures placed. Bleeding controlled with pressure dressing.
[2016-09-30] MEDS: *HR* OxyCODONE Immed Rel 15 MG TABLET PO PRN ×2 (03:48→08:01)
[2016-09-30 04:40] LABS: Basophils # 0.1 K/mcL (0.0-0.2); Basophils % 1.4 %; Eosinophils # 0.2 K/mcL (0.0-0.6); Eosinophils % 5.2 %; Hemoglobin 11.3 g/dL (12.9-16.9); Immature Granulocytes % 0.5 % (0-4); Lymphocytes # 1.2 K/mcL (0.6-4.6); Lymphocytes % 33.1 %; Mean Corpuscular HGB Conc 32.3 g/dL (31.6-35.5); Mean Corpuscular Volume 86.8 fL (83.0-100.0); Monocytes # 0.3 K/mcL (0.0-1.3); Monocytes % 8.7 %; Neutrophils # 1.9 K/mcL (1.6-8.9); Platelet Count 126 K/mcL (140-400); Red Blood Count 4.03 M/mcL (4.19-5.50); Red Cell Distribution Width 17.5 % (11.5-14.5); Segmented Neutrophils % 51.1 %
[2016-09-30 05:02] LABS: BUN/Creatinine Ratio 12 (6-26); Blood Urea Nitrogen 15 mg/dL (8-26); Calcium 8.9 mg/dL (8.6-10.8); Carbon Dioxide 29 mEq/L (19-29); Chloride 104 mEq/L (98-109); Glucose 141 mg/dL (70-99); Osmolality,Calculated 295 (280-300); Potassium 3.6 mEq/L (3.5-4.5); Sodium 141 mEq/L (136-145); eGFR For African Americans > 60 (> 60); eGFR For Non-African Americans > 60 (> 60)
[2016-09-30] MEDS: Doxycycline 100 MG in 0.9 % Sodium Chloride Mini Bag 100 ML IVPB SCH (06:04)
[2016-09-30] MEDS: *HR* Enoxaparin 40 MG/0.4 ML SYRINGE SQ SCH (06:10)
[2016-09-30 07:48] VITALS: BP 159/102
[2016-09-30] MEDS: ceFAZolin 1,000 MG in D5% in Water (Mini-Bag+) 100 ML IVPB SCH (07:59)
[2016-09-30] MEDS: Furosemide 40 MG/4 ML VIAL IVP SCH (08:00)
[2016-09-30] MEDS: Diltiazem CD (24hr) 180 MG CAPSULE PO SCH (08:00)
[2016-09-30] MEDS: Metoprolol XL (24 HR) Succ 50 MG TAB.ER.24H PO SCH (08:00)
[2016-09-30] MEDS: Aspirin 325 MG TABLET PO SCH (08:00)
[2016-09-30] MEDS: Colchicine 0.6 MG TABLET PO SCH (08:01)
--- NOTE | 2016-09-30 08:55 | Discharge Summary ---
<Eliud Wells - Last Filed: 09/30/16 08:51> Date of Encounter: 09/30/16 Time of Encounter: 08:51 - Discharge Diagnosis (1) Congestive heart failure Priority: Primary Status: Acute Qualifiers: Congestive heart failure type: diastolic Congestive heart failure chronicity: acute on chronic Qualified Code(s): I50.33 - Acute on chronic diastolic (congestive) heart failure (2) Cellulitis Priority: Primary Status: Acute Qualifiers: Site of cellulitis: periorbital Laterality: left Qualified Code(s): L03.213 - Periorbital cellulitis (3) A-fib Priority: Secondary Status: Acute Qualifiers: Atrial fibrillation type: chronic Qualified Code(s): I48.2 - Chronic atrial fibrillation (4) Hypothyroidism Priority: Secondary Status: Acute Qualifiers: Hypothyroidism type: unspecified Qualified Code(s): E03.9 - Hypothyroidism , unspecified - Discharge Medications Prescriptions: Doxycycline 100 mg PO BID #22 capsule Home Medications: Aspirin 650 mg PO DAILY 09/27/16 [History] Bisacodyl [Dulcolax] 5 mg PO HS 09/27/16 [History] Colchicine [Colcrys] 0.6 mg PO DAILY 09/27/16 [History] Diltiazem HCl [Diltiazem 24Hr Cd] 180 mg PO BID 09/27/16 [History] Furosemide [Lasix] 40 mg PO DAILY 09/27/16 [History] Hydrocortisone/Pramoxine [Proctofoam-Hc 1%-1% Foam] 10 gm RC TID 09/27/16 [ History] Levothyroxine [Synthroid] 50 mcg PO 30 09/27/16 [History] Metoprolol Succinate 100 mg PO BID 09/27/16 [History] OxyCODONE Immed Rel [Roxicodone 15 MG] 15 mg PO Q4H PRN 09/27/16 [History] Psyllium Husk (with Sugar) [Konsyl Psyllium Fiber Packet] 15 ml PO BID 09/27/16 [History] Doxycycline 100 mg PO BID #22 capsule 09/30/16 [Rx] Allergies/Adverse Reactions: Allergies vancomycin Allergy (Verified 09/28/16 12:14) See Comments pt states that when he takes vanc he passes out and has twitching movements Procedures/tests Complete & Pending: Procedures Performed prior 72 hours Category Date Time Status CT orbit w con [CT] Stat Cat Scan 09/28/16 14:02 Draft - Notes to Outpatient Provider Patient had punch biopsy performed to skin lesion on the left arm. Results are pending. Patient had 3 sutures placed that will need to be removed in 10-14 days. Date of admission: 09/28/16 00:55 Primary care physician: CARMELA SALES Discharging clinician: Eliud Wells Anticipated date of discharge: 09/30/16 - Patient Status Disposition: Home, Self-Care Condition: Fair Functional capacity at discharge: uses cane/walker Overall status at discharge: patient is progressing back to baseline - Discharge Instructions Instructions: Heart Failure (DC), Cellulitis (DC) Follow Up With: HENRRY,PCP [Primary Care Provider] - 10/07/16 10:15 am Additional Instructions: Please follow up with your primary care physician, within the next 7-10 days as you will need to have your sutures removed. Please resume your home medications. Please take the antibiotic until completely. Please restrict your fluid intake to 1.5 L daily. Please return for any new or worsening symptoms. - Diet and Activity Activity: ambulate only with your walker, increase activity as tolerated Diet: low salt diet (With no more than 1.5 L of fluid daily ) Interval History: Patient seen and examined at bedside. Patient states he feels much better today. His breathing has improved to baseline. His cellulitis feels much improved. Denies fever, chills, chest pain, dyspnea, vision changes Hospital course: Mr. Barnes is a 61 year old male with history of heart failure and atrial fibrillation presents with shortness of breath and lower extremity edema. Patient had evidence of acute on chronic diastolic heart failure. Patient was treated with IV diuretics and improved rapidly. Patient was also noted to have a cellulitis under his left eye and of the left lower leg. CT of the orbit was performed which ruled out an orbital cellulitis. Patient was treated with doxycycline and cefazolin and and his cellulitis appears much improved. Patient 's cellulitis appeared to be secondary to multiple excoriations that it progressed from macules that the patient states developed spontaneously. Punch biopsy was performed with results pending. Patient will be discharged home in stable condition. - Time Spent with Patient Total time spent providing and/or coordinating discharge services: Greater than 30 minutes - Constitutional Vitals: Temp Pulse Resp BP Pulse Ox 98.3 F 93 17 159/102 94 09/30/16 07:00 09/30/16 07:00 09/30/16 07:00 09/30/16 07:00 09/30/16 08:16 General appearance: Present: A&O X 3, no acute distress, answers questions appropriately - Eye Eye exam: Present: EOMI, periorbital swelling (Mostly lateral to the left eye at this time, much improved from admission), PERRL - Respiratory Respiratory exam: Present: CTAB. Absent: rales, rhonchi, wheezes - Cardiovascular Cardiovascular exam: Present: irregular rhythm. Absent: gallop, rubs, systolic murmur, tachycardia - GI/Abdominal GI/Abdominal exam: Present: normal bowel sounds, soft. Absent: distended, tenderness - Extremities Exam Extremities exam: Present: pedal edema (Trace ), warm. Absent: tenderness Additional comments: Erythema left lower shimmery is present but much improved from admission. <Lucien Rodriguez - Last Filed: 09/30/16 13:50> Date of Encounter: 09/30/16 - Discharge Diagnosis (1) Congestive heart failure Status: Acute Qualifiers: Congestive heart failure type: diastolic Congestive heart failure chronicity: acute on chronic Qualified Code(s): I50.33 - Acute on chronic diastolic (congestive) heart failure (2) A-fib Status: Acute Qualifiers: Atrial fibrillation type: chronic Qualified Code(s): I48.2 - Chronic atrial fibrillation (3) Cellulitis Status: Acute Qualifiers: Site of cellulitis: periorbital Laterality: left Qualified Code(s): L03.213 - Periorbital cellulitis (4) Nodular rash Priority: Secondary Status: Chronic (5) Hypothyroidism Status: Acute Qualifiers: Hypothyroidism type: unspecified Qualified Code(s): E03.9 - Hypothyroidism , unspecified (6) Sleep apnea Priority: Secondary Status: Acute Qualifiers: Sleep apnea type: obstructive Qualified Code(s): G47.33 - Obstructive sleep apnea (adult) (pediatric) (7) Morbid obesity with BMI of 50.0-59.9, adult Priority: Secondary Status: Chronic Procedures/tests Complete & Pending: Procedures Performed prior 72 hours Category Date Time Status CT orbit w con [CT] Stat Cat Scan 09/28/16 14:02 Draft Date of admission: 09/28/16 00:55 Primary care physician: PCP [place] Hospital course: Mr. Barnes is a 61 year old male - Time Spent with Patient Total time spent providing and/or coordinating discharge services: 38min - Constitutional Vitals: Temp Pulse Resp BP Pulse Ox 98.3 F 93 17 159/102 94 09/30/16 07:00 09/30/16 07:00 09/30/16 07:00 09/30/16 07:00 09/30/16 08:16 - Attending Attestation I examined this patient and my medical decision-making was reviewed with the Resident Physician on 09/30/16. I agree with the documented findings, disposition and treatment plan as described except to the extent set forth below. Mr. Barnes is breathing much better. He denies pain or other new symptoms. He is afebrile and his vitals are stable. No issues with biopsy yesterday. Exam Alert. Comfortable Edema improving No bleeding noted No wheeze Plan D/C today [facility] with [facility] report.
== END 2016-09-30 12:02 | disposition home or self-care (01) | DRG 292 ==
LOC: EMEROO 18:49 → 2NENU 18:49 → SUATTDRO 09-28 00:55 → 2NENU 09-28 08:31
PROVIDERS: ADMIT Internal Medicine; ATTEND Internal Medicine